=== PATIENT | female | born 1965 | race Two or more races ===

== ENCOUNTER 2020-09-23 15:36 | Emergency (ER) | payer OTHER ==
[~2020-09-23] VITALS: Ht 160 cm; Wt 95.4 kg
--- NOTE | 2020-09-23 16:35 | NUR ---
Pt brought in from triage with chief complaints of palpitations x2 days and productive cough x2 weeks. Pt states that she has some tightness and pressure in her chest. Pt states that she feels dizzy and lightheaded upon standing.
[2020-09-23] MEDS ORDERED: SODIUM CHLORIDE 0.9% 1,000ML IVBOLUS ONE (17:00)
[2020-09-23] MEDS ORDERED: SODIUM CHLORIDE FLUSH 10ML SYR IVF ONE (17:00)
--- NOTE | 2020-09-23 17:12 | NUR ---
IV placed and IV fluids initiated. Pt resting comfortably.
[2020-09-23 17:18] LABS: BASOPHILS % (AUTO) 1 % (0-1); EOSINOPHILS % (AUTO) 1 % (1-7); LYMPHOCYTES % (AUTO) 39 % (22-44); MEAN CORPUSCULAR HEMOGLOBIN 33.5 pg (27.0-34.8); MEAN CORPUSCULAR HGB CONC 36.2 g/dL (32.4-35.8); MEAN PLATELET VOLUME 8.9 fL (7.4-10.4); MONOCYTES % (AUTO) 7 % (2-9); NEUTROPHILS % (AUTO) 53 % (42-75); PLATELET COUNT 155 x10^3/uL (130-400); RED BLOOD COUNT 4.98 x10^6/uL (3.82-5.3); RED CELL DISTRIBUTION WIDTH 12.4 % (9.6-15.2)
[2020-09-23 17:25] LABS: ALBUMIN 3.8 g/dL (3.4-5.0); ANION GAP 9 mmol/L (5-15); CALCIUM 9.2 mg/dL (8.5-10.1); CHLORIDE 100 mmol/L (98-107)
[2020-09-23 17:27] LABS: MD NO
[2020-09-23 17:30] LABS: CREATININE 0.86 mg/dL (0.55-1.02); TROPONIN I < 0.015 ng/mL (0.000-0.045)
--- NOTE | 2020-09-23 18:16 | NUR ---
ER MD at bedside to discuss plan of care
[2020-09-23 18:34] VITALS: BP 109/65
--- NOTE | 2020-09-23 18:34 | NUR ---
discharge instructions reviewed.
== END 2020-09-23 18:46 | disposition home or self-care (01) ==
LOC: ED 16:44
DX: R00.2 Palpitations (principal); E11.65 Type 2 diabetes mellitus with hyperglycemia; E87.6 Hypokalemia; I51.7 Cardiomegaly; R94.31 Abnormal electrocardiogram [ECG] [EKG]; F17.200 Nicotine dependence, unspecified, uncomplicated
CPT/HCPCS: 36415; 71045; 80048; 82040; 84443; 84484; 85025; 93005; 96360; 99285; J7030